=== PATIENT | female | born 1990 ===

== ENCOUNTER 2022-03-31 01:21 | Inpatient (IN) | payer SELFPAY ==
[2022-03-31] MEDS ORDERED: ePHEDrine SULFATE 50 MG/1 ML INJ IV PRN (02:08)
[2022-03-31] MEDS ORDERED: fentaNYL 100 MCG/2 ML INJ IV PRN (02:08)
[2022-03-31] MEDS ORDERED: BUTORPHANOL 2 MG/1 ML INJ IV PRN (02:08)
[2022-03-31] MEDS ORDERED: METHYLERGONOVINE MALEATE 0.2 MG/ML VIAL IM PRN (02:08)
[2022-03-31] MEDS ORDERED: LOPERAMIDE 2 MG CAP PO PRN (02:08)
[2022-03-31] MEDS ORDERED: LIDOCAINE (2%) 20 MG/1 ML VIAL 20 ML MDV INFILTRATI ONE (02:08)
[2022-03-31] MEDS ORDERED: ACETAMINOPHEN 325 MG TAB PO PRN ×2 (02:08→02:37)
[2022-03-31] MEDS ORDERED: MINERAL OIL 30 ML ORAL LIQD PO PRN (02:08)
[2022-03-31] MEDS ORDERED: miSOPROStol 200 MCG TAB PR PRN (02:08)
[2022-03-31] MEDS ORDERED: CARBOPROST TROMETHAMINE 250 MCG/1 ML INJ IM PRN (02:08)
[2022-03-31] MEDS ORDERED: OXYTOCIN 10 UNIT/1 ML INJ IM PRN (02:08)
[2022-03-31] MEDS ORDERED: TERBUTALINE 1 MG/1 ML INJ SUB-Q PRN (02:08)
[2022-03-31] MEDS ORDERED: LACTATED RINGERS 1,000 ML IV SCH (02:15)
[2022-03-31] MEDS ORDERED: OXYTOCIN DRIP 30,000 MILLIUNITS/500 ML BAG IV ONE (02:16)
--- NOTE | 2022-03-31 02:31 | History and Physical Report ---
History of Present Illness Date of examination: 03/31/22 Date of admission: 03/31/22 02:10 Chief complaint: Contractions History of present illness: The patient is a 31-year-old at 38-2/7 weeks gestation presents to OB triage reporting regular and painful uterine contractions occurring every 5 minutes. There is no vaginal bleeding. There is no leaking of fluid. There is good movement. In OB triage, the cervix was noted be 8 to 9 cm dilated. This patient is admitted to labor and delivery in active labor. Past History Past Medical History: no pertinent history Past Surgical History: no surgical history Family/Genetic History: none Social history: no significant social history - Obstetrical History Expected Date of Delivery: 04/12/22 Actual Gestation: 38 Week(s) 2 Day(s) : 4 Para: 3 Medications and Allergies Allergies Allergy/AdvReac Type Severity Reaction Status Date / Time No Known Allergies Allergy Verified 03/31/22 02:14 Active Meds: Active Medications Acetaminophen (Acetaminophen 325 Mg Tab) 650 mg PO Q4H PRN PRN Reason: Pain, Mild (1-3) Butorphanol Tartrate (Butorphanol 2 Mg/1 Ml Inj) 1 mg IV Q2H PRN PRN Reason: Pain, Moderate(4-6) LABOR PAIN Carboprost Tromethamine (Carboprost Tromethamine 250 Mcg/1 Ml Inj) 250 mcg IM ONCE PRN PRN Reason: Uterine Bleeding Ephedrine Sulfate (Ephedrine Sulfate 50 Mg/1 Ml Inj) 10 mg IV Q2M PRN PRN Reason: Hypotension Fentanyl (Fentanyl 100 Mcg/2 Ml Inj) 100 mcg IV Q2H PRN PRN Reason: Pain,Severe (7-10) LABOR PAIN Oxytocin/Sodium Chloride (Pitocin/Ns 30 Unit/500ml) 30 units in 500 mls @ 2 mls/hr IV TITR CHRIS; Protocol Lactated Ringer's (Lactated Ringers) 1,000 mls @ 125 mls/hr IV DIRECT CHRIS Oxytocin/Sodium Chloride (Pitocin/Ns 30 Unit/500ml) 30 units in 500 mls @ 40 mls/hr IV TITR CHRIS; Protocol Loperamide HCl (Loperamide 2 Mg Cap) 2 mg PO ONCE PRN PRN Reason: give with Hemabate Methylergonovine Maleate (Methylergonovine Maleate 0.2 Mg/Ml Vial) 0.2 mg IM ONCE PRN PRN Reason: Uterine Bleeding Mineral Oil (Mineral Oil 30 Ml Oral Liqd) 30 ml PO QHS PRN PRN Reason: Constipation Misoprostol (Misoprostol 200 Mcg Tab) 800 mcg VT ONCE PRN PRN Reason: Uterine Bleeding Oxytocin (Oxytocin 10 Unit/1 Ml Inj) 10 unit IM ONCE PRN PRN Reason: Uterine Bleeding Terbutaline Sulfate (Terbutaline 1 Mg/1 Ml Inj) 0.25 mg SUB-Q ONCE PRN PRN Reason: Hyperstimulation/Hypertonicity - Vital Signs Vital signs: Vital Signs Temp 98.2 F 03/31/22 01:31 Temp Pulse Resp BP Pulse Ox 98.2 F 60 99 03/31/22 01:31 03/31/22 02:25 03/31/22 02:25 - Physical Exam Breasts: Positive: normal Cardiovascular: Regular rate Lungs: Positive: Normal air movement Abdomen: Positive: normal appearance Genitourinary (Female): Positive: normal external genitalia, normal perenium Vulva: both: normal Vagina: Positive: normal moisture Uterus: Positive: enlarged Adnexa: both: normal Anus/Rectum: Positive: normal perianal skin Extremities: Positive: normal Deep Tendon Reflex Grade: Normal +2 - Obstetrical FHR: category 1 Uterine Contraction Monitor Mode: Palpation Cervical Dilatation: 8.5 Cervical Effacement Percentage: 90 station: -1 Uterine Contraction Frequency (min): 5 Uterine Contraction Pattern: Regular Uterine Tone Measurement Phase: Contraction Uterine Contraction Intensity: Moderate Results All other labs normal. Assessment and Plan - Patient Problems (1) 38 weeks gestation of Current Visit: Yes Status: Acute Plan to address problem: care is up-to-date at [facility]. GBS status is unknown. Currently, there are no risk factors for GBS. Therefore, no intrapartum GBS prophylaxis at this time. In the event that the patient does develop risk factors for GBS, then prescribe penicillin IV at that time. (2) Spontaneous onset of labor after 37 but before 39 completed weeks gestation with delivery by planned section Current Visit: Yes Status: Acute Plan to address problem: This patient has regular and painful uterine contractions occurring every 5 minutes with a cervical exam that is 8 to 9 cm dilated. As such, this patient is an active labor. Admit patient to labor and delivery in active labor. Expectant management for now. I anticipate a normal spontaneous vaginal delivery.
--- NOTE | 2022-03-31 02:31 | Procedure Note ---
OB Delivery Note - Delivery Date of Delivery: 03/31/22 Surgeon: FIDENCIO DELGADILLO Estimated blood loss: 100cc - Vaginal Delivery presentation: vertex Delivery position: OA Intrapartum events: precipitous labor- <3hr Delivery induction: none Delivery monitor: none Delivery placenta: spontaneous Delivery cord: 3 umbilical vessels Episiotomy: none Delivery laceration: none Anesthesia: none Delivery comments: The patient presented to labor and delivery in active labor. She had a precipitous vaginal . The perineum was intact. The patient tolerated delivery well. - Infant A at 1 minute: 7 at 5 minutes: 9 Infant Gender: Female
[2022-03-31] MEDS ORDERED: BENZOCAINE/MENTHOL 20/0.5% TOP SPRAY 56 GM TP PRN (02:37)
[2022-03-31] MEDS ORDERED: MAGNESIUM HYDROXIDE (MOM) ORAL LIQD UDC PO PRN (02:37)
[2022-03-31] MEDS ORDERED: WITCH HAZEL/ GLYCERIN PAD TP PRN (02:37)
[2022-03-31] MEDS ORDERED: HYDROcodone/ACETAMINOPHEN 5-325 MG TAB PO PRN (02:37)
[2022-03-31] MEDS ORDERED: LANOLIN/ZINC/DIMETHICONE (LANSINOH) 7 GM TP PRN (02:37)
[2022-03-31 02:40] LABS: Hematocrit 40.8 % (30.3-42.9); Hemoglobin 13.8 gm/dl (10.1-14.3); Mean Corpuscular HGB Conc 34 % (30-34); Mean Corpuscular Volume 95 fl (79-97); Platelet Count 217 K/mm3 (140-440); Red Blood Count 4.29 M/mm3 (3.65-5.03); Red Cell Distribution Width 14.5 % (13.2-15.2)
[2022-03-31] MEDS ORDERED: OXYTOCIN DRIP 30 UNITS/500 ML BAG IV SCH ×2 (03:00)
[2022-03-31 03:14] LABS: HCG,Quantitative 5983 mIU/mL (0-4)
[2022-03-31] MEDS: IBUPROFEN 800 MG TAB PO SCH ×3 (03:15→16:22)
[2022-03-31 04:14] LABS: Hepatitis C Virus Antibody Non-Reactive (NonReactive)
[2022-03-31] MEDS: DOCUSATE SODIUM 100 MG CAP PO SCH (09:59)
[2022-04-01] MEDS: IBUPROFEN 800 MG TAB PO SCH ×4 (06:38→18:31)
[2022-04-01 08:42] LABS: Hematocrit 34.8 % (30.3-42.9); Hemoglobin 11.7 gm/dl (10.1-14.3); Mean Corpuscular HGB Conc 34 % (30-34); Mean Corpuscular Volume 96 fl (79-97); Platelet Count 190 K/mm3 (140-440); Red Blood Count 3.62 M/mm3 (3.65-5.03); Red Cell Distribution Width 14.1 % (13.2-15.2)
[2022-04-01] MEDS: DOCUSATE SODIUM 100 MG CAP PO SCH (12:46)
--- NOTE | 2022-04-01 15:23 | Progress Note ---
Assessment and Plan PPD#1 doing well 1. Routine care; normal labs seen. May go home tomorrow. Subjective Date of service: 04/01/22 Principal diagnosis: PPD#1 Interval history: pt has no complaints. pt wants to remain in hospital until tomorrow. pt is bottle feeding. Vag bleed less than a period and no pelvic pain Objective - Constitutional Vitals: Vital Signs - 12hr 04/01/22 04/01/22 04/01/22 08:05 08:12 12:46 Temperature 98.0 F Pulse Rate 42 L Respiratory 18 16 Rate Blood Pressure 100/58 O2 Sat by Pulse 99 Oximetry O2 Sat by Pulse 99 Oximetry [ Bilateral Throughout] General appearance: Present: no acute distress - Neck Neck: normal ROM - Respiratory Respiratory effort: normal - Breasts Breasts: deferred Extremities: No edema - Gastrointestinal General gastrointestinal: Present: soft, non-tender - Genitourinary Female genitourinary: other (fundus firm 1cm below the umbilicus, no tenderness; lochia small) - Neurologic Neurologic: moves all extremities - Psychiatric Psychiatric: cooperative - Labs CBC & Chem 7: 04/01/22 08:31 Labs: Abnormal lab results 04/01/22 Range/Units 08:31 RBC 3.62 L (3.65-5.03) M/mm3 Medications & Allergies - Medications Allergies/Adverse Reactions: Allergies No Known Allergies Allergy (Verified 03/31/22 02:14) Active Medications: Generic Name Dose Route Start Last Admin Trade Name Freq PRN Reason Stop Dose Admin Acetaminophen 650 mg 03/31/22 02:37 Acetaminophen 325 Mg Tab PO Q4H PRN Pain MILD(1-3)/Fever >100.5/[place] Hydrocodone Bitart/Acetaminophen 2 each 03/31/22 02:37 Hydrocodone/Acetaminophen 5-325 Mg Tab PO Q6H PRN Pain, Moderate (4-6) Benzocaine/Menthol 1 spray 03/31/22 02:37 Benzocaine/Menthol 20/0.5% [place] 56 Gm TP PRN PRN Episiotomy Pain Docusate Sodium 100 mg 03/31/22 10:00 04/01/22 12:46 Docusate Sodium 100 Mg Cap PO 100 mg BID CHRIS Administration Ibuprofen 800 mg 03/31/22 03:00 04/01/22 12:46 Ibuprofen 800 Mg Tab PO 800 mg Q6H CHRIS Administration Magnesium Hydroxide 30 ml 03/31/22 02:37 Magnesium Hydroxide (Mom) Oral Liqd Udc PO HS PRN Constipation Multi-Ingredient Ointment 1 applic 03/31/22 02:37 Lanolin/Zinc/Dimethicone (Lansinoh) 7 Gm TP PRN PRN Sore Nipples Sodium Chloride 10 ml 03/31/22 03:00 Sodium Chloride 0.9% 10 Ml Flush Syringe IV PRN PRN LINE FLUSH Witch Kia/Glycerin 1 each 03/31/22 02:37 Witch Kia/ Glycerin Pad TP PRN PRN Hemorrhoid/cleansing/soothing
[2022-04-02] MEDS: IBUPROFEN 800 MG TAB PO SCH ×2 (01:34→12:00)
--- NOTE | 2022-04-02 11:58 | Progress Note ---
Assessment and Plan A: PP Day #2 Stable P: Follow Routine Orders D/C home today RTO in 6 Weeks Subjective - Subjective Date of service: 04/02/22 Principal diagnosis: PPD#1 Patient reports: appetite normal, voiding normally, pain well controlled, flatus, bowel movement, ambulating normally [place]: doing well, bottle feeding Objective - Vital Signs Latest vital signs: Vital Signs Temp Pulse Resp BP BP Pulse Ox Pulse Ox 04/02/22 07:46 98.1 F 49 L 16 98/53 96 04/02/22 00:00 98.4 F 74 16 105/77 04/01/22 22:09 97 04/01/22 18:31 16 04/01/22 16:44 97.7 F 52 L 16 106/57 97 04/01/22 12:46 16 Intake and Output 04/01/22 04/02/22 04/02/22 22:59 06:59 14:59 Intake Total 1260 200 120 Balance 1260 200 120 Intake: Oral 360 200 120 Intake, Free Water 900 Other: Total, Intake Amount 360 200 120 # Voids Void 1 1 1 - Exam Breasts: Present: normal Cardiovascular: Present: Regular rate Lungs: Present: Clear to auscultation, Normal air movement Abdomen: Present: normal appearance, soft, normal bowel sounds Uterus: Present: normal, firm, fundal height below umbilicus Extremities: Present: normal
--- NOTE | 2022-04-02 11:59 | Discharge Summary ---
Providers - Providers Date of Admission: 03/31/22 02:10 Date of discharge: 04/02/22 Attending physician: FIDENCIO DELGADILLO MD Primary care physician: FIDENCIO DELGADILLO MD Hospitalization Reason for admission: active labor Delivery: Episiotomy: none Laceration: none Other procedures: none complications: none Discharge diagnosis: IUP at term delivered [place] baby: female Condition at discharge: Good Disposition: 01 HOME / SELF CARE / HOMELESS Plan - Provider Discharge Summary Activity: routine, no sex for 6 weeks, no heavy lifting 4 weeks, no strenuous exercise Diet: routine Instructions: routine Additional instructions: [] Smoking cessation referral if applicable(refer to patient education folder for contact #) [] Refer to [facility]'s [facility] Booklet Call your doctor immediately for: * Fever > 100.5 * Heavy vaginal bleeding ( >1 pad per hour) * Severe persistent headache * Shortness of breath * Reddened, hot, painful area to leg or breast * Drainage or odor from incision. * Keep incision clean and dry at all times and follow doctor's instructions regarding bathing/showering - Follow up plan Follow up: FIDENCIO DELGADILLO MD [Primary Care Provider] - 6 Weeks
[2022-04-02] MEDS: DOCUSATE SODIUM 100 MG CAP PO SCH (12:25)
[2022-04-02 15:02] VITALS: BP 122/62
== END 2022-04-02 19:08 | disposition home or self-care (01) | DRG 807 ==
LOC: TRG 01:21 → LD 01:58 → TRG 02:10 → LD 02:10 → OB 05:17
PROVIDERS: ADMIT Obstetrics & Gynecology Gynecology; ATTEND Obstetrics & Gynecology Gynecology
PROC: 10E0XZZ Delivery of Products of Conception, External Approach (ICD-10-PCS; principal; 2022-03-31)
DX: O62.3 Precipitate labor (principal); Z37.0 Single live birth; Z3A.38 38 weeks gestation of pregnancy; Z20.822 Contact with and (suspected) exposure to COVID-19
CPT/HCPCS: 36415; 84702; 85027; 86592; 86706; 86762; 86803; 86850; 86900; 86901; 87806; 99211; G0378; G0463; J2590; U0003